=== PATIENT | male | born 1995 | race African-American/Black ===

== ENCOUNTER 2024-01-11 20:49 | Emergency (ER) | payer MEDICAID ==
[2024-01-11] MEDS: EPINEPHrine 1 MG/1 ML Amp IM ONE (21:02)
== END 2024-01-11 23:23 | disposition home or self-care (01) ==
LOC: VM.ED 20:49
DX: T63.441A Toxic effect of venom of bees, accidental (unintentional), initial encounter (principal); Z91.030 Bee allergy status; Z79.899 Other long term (current) drug therapy
CPT/HCPCS: 96372; 99283; J0171